=== PATIENT | male | born 1980 | race Caucasian/White ===

== ENCOUNTER → 2018-06-27 | Outpatient (CLI) | payer OTHER ==
[~2018-06-27] MED LIST: ALB18R INH; AZIT-18 PO; CODE118S5 PO; GUAI600T57 PO; LEV500P IV; MULTIVIT; OND4 PO
[2018-06-27 13:44] LABS: PLATELET COUNT, AUTOMATED 213 K/uL (150-450)
== END ==
LOC: LAB 13:26
PROVIDERS: ATTEND Nurse Practitioner Family
DX: I10 Essential (primary) hypertension (principal)
CPT/HCPCS: 36415; 82040; 82247; 82310; 82374; 82435; 82465; 82565; 82947; 83718; 84075; 84132; 84155; 84295; 84443; 84450; 84460; 84478; 84520; 85025

== ENCOUNTER → 2018-07-08 | Outpatient (CLI) | payer OTHER ==
--- NOTE | 2018-07-08 13:24 | RADIOLOGY IMAGING REPORT ---
[place] [facility] [place] NAME: Leon Angeles : 1980 MR: [id number] V: [id number] EXAM DATE: ORDERING PHYSICIAN: BRENDA BUSTOS TECHNOLOGIST: Location: [facility] Patient: Leon Angeles : 1980 Visit/Account:[id number] Date of Sevice: 07/08/2018 US ARTERIAL RENAL DUPX DOPPLER HISTORY: HTN, elevated creat COMPARISON: None. FINDINGS: Duplex sonographic interrogation the bilateral kidneys is performed. There is normal renal cortical echogenicity bilaterally without thinning. Right kidney measures 11.0 x 4.5 x 4.7 cm. Left kidney measures 11.6 x 4.7 x 4.7 cm. Right renal artery demonstrates normal arterial velocities. Spectral overlay demonstrates normal ant egrade diastolic flow without significant blunting of the systolic acceleration curve. Right renal v ein is patent. Right renal to aortic ratio: Normal. 0.76 Left main renal artery demonstrates normal arterial velocities with antegrade diastolic flow and with out significant blunting of the systolic acceleration curve. The renal to aortic ratio is normal, 0. 46. If renal vein is patent. The resistive indices are taken bilaterally involving the upper and lower poles. These are within no rmal limits. IMPRESSION: 1. Unremarkable renal vascular interrogation without evidence of hemodynamically significant arteria l disease. Report Dictated By: Beka Beaver MD at 07/08/2018 1:17 PM Report E-Signed By: Beka Beaver MD at 07/08/2018 1:20 PM WSN:[email or web address]
== END ==
LOC: US 01:07
PROVIDERS: ATTEND Nurse Practitioner Family
DX: I10 Essential (primary) hypertension (principal); R74.8 Abnormal levels of other serum enzymes
CPT/HCPCS: 93975

== ENCOUNTER → 2018-07-19 | Outpatient (CLI) | payer OTHER | LOC: LAB 07:56 | PROVIDERS: ATTEND Nurse Practitioner Family | DX: I10 Essential (primary) hypertension (principal); R74.8 Abnormal levels of other serum enzymes | CPT/HCPCS: 81001; 82043; 82570 ==

== ENCOUNTER → 2018-08-16 | Outpatient (CLI) | payer OTHER ==
[~2018-08-16] MED LIST changes: +AMLO-125 PO; +AMLO-127 PO
== END ==
LOC: LAB 13:36
PROVIDERS: ATTEND Nurse Practitioner Family
DX: N18.9 Chronic kidney disease, unspecified (principal); I10 Essential (primary) hypertension
CPT/HCPCS: 36415; 82310; 82374; 82435; 82565; 82947; 84132; 84295; 84520

== ENCOUNTER → 2018-11-13 | Outpatient (CLI) | payer OTHER ==
[~2018-11-13] MED LIST changes: +LISI-362 PO
== END ==
LOC: LAB 09:31
PROVIDERS: ATTEND Nurse Practitioner Family
DX: I10 Essential (primary) hypertension (principal)
CPT/HCPCS: 36415; 82310; 82374; 82435; 82565; 82947; 84132; 84295; 84520